=== PATIENT | female | born 1965 | race Caucasian/White ===

== ENCOUNTER 2017-10-16 16:07 | Emergency (ER) | payer OTHER ==
[~2017-10-16] VITALS: Ht 165.1 cm; Wt 181.4 kg
[2017-10-16] MEDS ORDERED: SYNTHROID150 MCG PO (16:16)
[2017-10-16] MEDS ORDERED: METOPROLOL SUC200 MG PO (16:16)
[2017-10-16] MEDS ORDERED: VITAMIN D250000 UNIT PO (16:16)
[2017-10-16] MEDS ORDERED: ALLOPURINOL300 MG PO (16:16)
[2017-10-16] MEDS ORDERED: MAXZIDE 75 MG-501 EA PO (16:16)
[2017-10-16] MEDS ORDERED: PIROXICAM10 MG PO (16:16)
[2017-10-16] MEDS ORDERED: KEFLEX500 MG PO (16:28)
== END 2017-10-16 17:03 | disposition home or self-care (01) ==
LOC: ED 16:07
DX: L03.116 Cellulitis of left lower limb (principal); L03.115 Cellulitis of right lower limb; L02.416 Cutaneous abscess of left lower limb; L02.415 Cutaneous abscess of right lower limb; I10 Essential (primary) hypertension; E03.9 Hypothyroidism, unspecified; Z88.0 Allergy status to penicillin; Z79.899 Other long term (current) drug therapy
CPT/HCPCS: 96374; 99283; J0696